=== PATIENT | male | born 1960 | race Caucasian/White ===

== ENCOUNTER 2023-07-27 02:19 | Observation (INO) | payer BC, OTHER ==
[2023-07-27] MEDS ORDERED: NITROGLYCERIN 0.4 MG/TAB SL ONE (02:47)
[2023-07-27] MEDS ORDERED: ASPIRIN 81 MG CHEWABLE TABLET ONE (02:47)
[2023-07-27 02:53] LABS: Absolute Lymphocytes (CBC) 1.3 K/uL (0.7-4.9); Lymphocytes % 15.8 % (15.3-44.8); MCV 89.6 fL (80-100); MPV 9.1 fL (7.6-11.3); Platelets 171 thou/uL (152-406); RBC Red Blood Cell Count 4.02 M/uL (4.33-5.43)
[2023-07-27] MEDS ORDERED: MORPHINE 4 MG/ML SYR ONE (03:07)
[2023-07-27] MEDS ORDERED: ONDANSETRON 4 MG/2 ML VIAL ONE (03:08)
[2023-07-27 03:12] LABS: ALT/SGPT 26 U/L (16-61); AST/SGOT 17 U/L (15-37); Albumin 3.5 g/dL (3.4-5.0); Alkaline Phosphatase 71 U/L (45-117); BUN Blood Urea Nitrogen 15 mg/dL (7-18); Bicarbonate 29 mEq/L (21-32); Bilirubin Direct < 0.1 mg/dL (0-0.2); Bilirubin Indirect, Calculated ND mg/dL (0.2-0.8); Bilirubin Total 0.3 mg/dL (0.2-1.0); Glomerular Filtration Rate 103 ml/min (=/>90); Glucose Level 312 mg/dL (74-106); Magnesium 1.7 mg/dL (1.6-2.4); NT PRO-BNP 62 pg/mL (<125); Sodium Level 134 mEq/L (136-145); Troponin High Sensitivity 6.4 pg/mL (<58.9)
[2023-07-27] MEDS ORDERED: FENTANYL CITR 100 MCG/2 ML ONE (05:52)
--- NOTE | 2023-07-27 06:26 | ER ---
Nurse's Notes [facility] Name: Codey Bishop Age: 62 yrs Sex: Male : 1960 Arrival Date: 07/27/2023 Time: 02:19 Bed 6 Private MD: Kyree Jin V Diagnosis: Chest pain, unspecified Presentation: 07/27 02:22 Chief complaint: Patient states: left side chest pain of 8 that radiates to left pf1 arm,onset 2030 last night,worse this AM with SOB. Patient stated had a Covid vaccination done yesterday. 02:22 Coronavirus screen: Vaccine status: Patient reports receiving the 2nd dose of the covid pf1 vaccine. 4 doses of covid vaccination Client denies travel out of the [place] in the last 14 days. At this time, the client does not indicate any symptoms associated with coronavirus-19. Ebola Screen: Patient negative for fever greater than or equal to 101.5 degrees Fahrenheit, and additional compatible Ebola Virus Disease symptoms. Initial Sepsis Screen: Does the patient meet any 2 criteria? No. Patient's initial sepsis screen is negative. Does the patient have a suspected source of infection? No. Patient's initial sepsis screen is negative. Risk Assessment: Do you want to hurt yourself or someone else? Patient reports no desire to harm self or others. 02:22 Method Of Arrival: Wheelchair pf1 02:22 Acuity: ANT 2 pf1 02:30 Onset of symptoms was July 26, 2023. jw7 Triage Assessment: 02:30 General: Appears in no apparent distress. uncomfortable, Behavior is calm, cooperative. jw7 02:30 Pain: Complains of pain in chest Pain radiates to left arm Pain currently is 8 out of jw7 10 on a pain scale. Quality of pain is described as pressure, radiating, sharp, tingling, Pain began 1 day ago. Is continuous. Cardiovascular: Reports chest pain, shortness of breath, Capillary refill < 3 seconds Clubbing of nail beds is absent JVD is absent Patient's skin is warm and dry. Historical: - Allergies: 02:39 PENICILLINS; pf1 - PMHx: 02:39 arthritis; Diabetes mellitus; Hypercholesterolemia; pf1 - PSHx: 02:39 left testicle surgery; nose surgery; pf1 - Immunization history:: Adult Immunizations up to date, Last tetanus immunization: < 10 years ago Flu vaccine is up to date. - Social history:: Smoking status: Patient denies any tobacco usage or history of. Patient/guardian denies using alcohol, street drugs. - Family history:: not pertinent. Screenin:30 [facility] ED Fall Risk Assessment (Adult) History of falling in the last 3 months, jw7 including since admission No falls in past 3 months (0 pts) Score/Fall Risk Level 0 - 2 = Low Risk. Abuse screen: Denies threats or abuse. Denies injuries from another. Nutritional screening: No deficits noted. Tuberculosis screening: No symptoms or risk factors identified. Assessment: 02:30 General: see triage assessment. jw7 02:50 Reassessment: Patient appears in no apparent distress at this time. Patient and/or jw7 family updated on plan of care and expected duration. Pain level reassessed. Patient is alert, oriented x 3, equal unlabored respirations, skin warm/dry/pink. pain not completely gone but better. 03:30 Reassessment: Patient appears in no apparent distress at this time. Patient and/or jw7 family updated on plan of care and expected duration. Pain level reassessed. Patient is alert, oriented x 3, equal unlabored respirations, skin warm/dry/pink. Patient states feeling better. 04:42 Reassessment: Patient appears in no apparent distress at this time. No changes from jw7 previously documented assessment. Patient and/or family updated on plan of care and expected duration. Pain level reassessed. Patient is alert, oriented x 3, equal unlabored respirations, skin warm/dry/pink. 05:40 Reassessment: Patient appears in no apparent distress at this time. Patient and/or jw7 family updated on plan of care and expected duration. Pain level reassessed. Patient is alert, oriented x 3, equal unlabored respirations, skin warm/dry/pink. c/o returning chest pain with radiation to left arm, provider notified. 05:40 Cardiovascular: Rhythm is sinus rhythm. jw7 06:42 Reassessment: Patient appears in no apparent distress at this time. Patient and/or jw7 family updated on plan of care and expected duration. Pain level reassessed. Patient is alert, oriented x 3, equal unlabored respirations, skin warm/dry/pink. Patient states feeling better. 09:13 Reassessment: attempted to call report to second floor. no answer at this time. kc6 09:25 Reassessment: attempted to call report to second floor. no answer at this time. charge kc6 nurse notified. will do bedside report to PEREZ Cohen. Vital Signs: 02:22 BP 160 / 65; Pulse 87; Resp 18; Temp 98.5; Pulse Ox 98% on R/A; Weight 83.91 kg; Height pf1 5 ft. 11 in. ; Pain 8/10; 02:30 BP 132 / 77 RA Sitting (auto/reg); Pulse 92 MON; Resp 14 S; Pulse Ox 95% on R/A; jw7 03:12 BP 107 / 66; Pulse 78; Resp 18; Pulse Ox 94% ; rv 03:37 BP 106 / 60; Pulse 76; Resp 20; Pulse Ox 95% ; rv 04:42 BP 111 / 58 LA Supine (auto/reg); Pulse 75 MON; Resp 16 S; Pulse Ox 98% on R/A; jw7 05:58 BP 131 / 69; Pulse 73; Resp 17; Pulse Ox 95% ; rv 06:41 BP 126 / 62; Pulse 81; Resp 18; Pulse Ox 96% ; rv 02:22 Body Mass Index 25.80 (83.91 kg, 180.34 cm) pf1 02:22 Pain Scale: Adult pf1 Paresh Coma Score: 05:58 Eye Response: spontaneous(4). Motor Response: obeys commands(6). Verbal Response: rv oriented(5). Total: 15. ED Course: 02:20 Patient arrived in ED. mr 02:21 Kyree Jin MD is Private Physician. mr 02:22 Emre Gonsales MD is Attending Physician. rt 02:30 Patient has correct armband on for positive identification. Bed in low position. Call jw7 light in reach. Arm band placed on. Client placed on continuous cardiac and pulse oximetry monitoring. NIBP monitoring applied. 02:33 Sandra Bai RN is Primary Nurse. jw7 02:39 Triage completed. pf1 02:45 Initial lab(s) drawn, by me, sent to lab. EKG done, by ED staff, reviewed by Emre Gonsales MD. Inserted saline lock: 20 gauge in right antecubital area, using aseptic technique. Blood collected. Patient maintains SpO2 saturation greater than 95% on room air. 02:50 XRAY Chest (1 view) In Process Unspecified. EDMS 04:23 CT Chest For PE Angio In Process Unspecified. EDMS 05:56 Troponin High Sensitivity Sent. jw7 06:25 Kyree Jin MD is Hospitalizing Provider. rt 07:00 Report received from Sandra Bai RN. kc6 07:21 No provider procedures requiring assistance completed. Patient admitted, IV remains in kc6 place. Administered Medications: 02:39 Drug: Nitroglycerin Sublingual 0.4 mg Route: Sublingual; jw7 02:44 Drug: Nitroglycerin Sublingual 0.4 mg Route: Sublingual; jw7 02:46 Drug: Aspirin PO Chewable Tablet 324 mg Route: PO; jw7 03:28 Follow up: Response: No adverse reaction jw7 02:49 Drug: Nitroglycerin Sublingual 0.4 mg Route: Sublingual; jw7 03:28 Follow up: Response: No adverse reaction; Marked relief of symptoms jw7 03:06 Drug: morphine IVP or IV 4 mg Route: IVP; Infused Over: 4 mins; Site: right antecubital;jw7 05:25 Follow up: Response: No adverse reaction; Marked relief of symptoms jw7 03:06 Drug: Ondansetron IVP 4 mg Route: IVP; Site: right antecubital; jw7 05:25 Follow up: Response: No adverse reaction jw7 05:56 Drug: fentaNYL (PF) IVP 50 mcg Route: IVP; Site: right antecubital; jw7 06:45 Follow up: Response: No adverse reaction; Marked relief of symptoms jw7 Medication: 07:21 VIS not applicable for this client. kc6 Outcome: 06:25 Decision to Hospitalize by Provider. rt 07:21 Admitted to ER Hold. Please see [facility] for further documentation. kc6 07:21 Condition: stable 07:21 Instructed on the need for admit. 09:39 Patient left the ED. kc6 Signatures: Dispatcher [employer] Florence ChavarriaJamshid RN RN rv Waits, Jodi, RN RN jw7 Campbell, Kaitlyn, RN RN kc6 Emre Gonsales MD MD rt Frances Mathew RN RN pf1 Corrections: (The following items were deleted from the chart) : 02:51 Arm band placed on jw7 jw7 :38 04:34 Patient has correct armband on for positive identification. Bed in low position. jw7 Call light in reach. jw7 : 04:34 Client placed on continuous cardiac and pulse oximetry monitoring. NIBP jw7 monitoring applied. jw7 : 04:34 Abuse screen: Denies threats or abuse. Denies injuries from another. jw7 7 :38 04:34 [facility] ED Fall Risk Assessment (Adult) History of falling in the last 3 months, jw7 including since admission No falls in past 3 months (0 pts) Score/Fall Risk Level 0 - 2 = Low Risk jw7 : 04:34 Nutritional screening: No deficits noted. jw7 7 : 04:34 Tuberculosis screening: No symptoms or risk factors identified. jw7 7 04:40 04:39 General: see triage assessment. jw7 7 04:42 03:30 Reassessment: Patient appears in no apparent distress at this time. Patient jw7 and/or family updated on plan of care and expected duration. Pain level reassessed. Patient is alert, oriented x 3, equal unlabored respirations, skin warm/dry/pink. jw7 06:42 05:40 Reassessment: Patient appears in no apparent distress at this time. Patient jw7 and/or family updated on plan of care and expected duration. Pain level reassessed. Patient is alert, oriented x 3, equal unlabored respirations, skin warm/dry/pink. c/o returning chest pain with radiation to left arm, provider notified. jw7
--- NOTE | 2023-07-27 06:26 | EDPHYS ---
Physician Documentation [facility] Name: Codey Bishop Age: 62 yrs Sex: Male : 1960 Arrival Date: 07/27/2023 Time: 02:19 Bed 6 Private MD: Kyree Jin V ED Physician Emre Gonsales HPI: 07/27 03:49 This 62 yrs old Male presents to ER via Wheelchair with complaints of Chest Pain. rt 03:49 Patient presents to the ED with a substernal chest pain rating to the left arm starting rt just about a. Is not exertional. He does have associated shortness of breath. He denies other acute complaints at this time. Pain is aching in nature, moderate severity, no other aggravating factors.. Historical: - Allergies: 02:39 PENICILLINS; pf1 - PMHx: 02:39 arthritis; Diabetes mellitus; Hypercholesterolemia; pf1 - PSHx: 02:39 left testicle surgery; nose surgery; pf1 - Immunization history:: Adult Immunizations up to date, Last tetanus immunization: < 10 years ago Flu vaccine is up to date. - Social history:: Smoking status: Patient denies any tobacco usage or history of. Patient/guardian denies using alcohol, street drugs. - Family history:: not pertinent. ROS: 03:49 Constitutional: Negative for fever, chills, and weight loss, Abdomen/GI: Negative for rt abdominal pain, nausea, vomiting, diarrhea, and constipation, MS/Extremity: Negative for injury and deformity, Skin: Negative for injury, rash, and discoloration, Neuro: Negative for headache, weakness, numbness, tingling, and seizure, Psych: Negative for depression, anxiety, suicide ideation, homicidal ideation, and hallucinations. 03:49 Cardiovascular: Positive for chest pain, Negative for edema. 03:49 Respiratory: Positive for shortness of breath, Negative for cough. Exam: 03:49 Constitutional: This is a well developed, well nourished patient who is awake, alert, rt and in no acute distress. Head/Face: Normocephalic, atraumatic. Neck: Trachea midline, no thyromegaly or masses palpated, and no cervical lymphadenopathy. Supple, full range of motion without nuchal rigidity, or vertebral point tenderness. No Meningismus. Chest/axilla: Normal chest wall appearance and motion. Nontender with no deformity. No lesions are appreciated. Cardiovascular: Regular rate and rhythm with a normal S1 and S2. No gallops, murmurs, or rubs. Normal PMI, no JVD. No pulse deficits. Respiratory: Lungs have equal breath sounds bilaterally, clear to auscultation and percussion. No rales, rhonchi or wheezes noted. No increased work of breathing, no retractions or nasal flaring. Abdomen/GI: Soft, non-tender, with normal bowel sounds. No distension or tympany. No guarding or rebound. No evidence of tenderness throughout. Skin: Warm, dry with normal turgor. Normal color with no rashes, no lesions, and no evidence of cellulitis. MS/ Extremity: Pulses equal, no cyanosis. Neurovascular intact. Full, normal range of motion. Neuro: Awake and alert, GCS 15, oriented to person, place, time, and situation. Cranial nerves II-XII grossly intact. Motor strength 5/5 in all extremities. Sensory grossly intact. Cerebellar exam normal. Normal gait. Psych: Awake, alert, with orientation to person, place and time. Behavior, mood, and affect are within normal limits. 03:49 ECG was reviewed by the Attending Physician. Vital Signs: 02:22 BP 160 / 65; Pulse 87; Resp 18; Temp 98.5; Pulse Ox 98% on R/A; Weight 83.91 kg; Height pf1 5 ft. 11 in. ; Pain 8/10; 02:30 BP 132 / 77 RA Sitting (auto/reg); Pulse 92 MON; Resp 14 S; Pulse Ox 95% on R/A; jw7 03:12 BP 107 / 66; Pulse 78; Resp 18; Pulse Ox 94% ; rv 03:37 BP 106 / 60; Pulse 76; Resp 20; Pulse Ox 95% ; rv 04:42 BP 111 / 58 LA Supine (auto/reg); Pulse 75 MON; Resp 16 S; Pulse Ox 98% on R/A; jw7 05:58 BP 131 / 69; Pulse 73; Resp 17; Pulse Ox 95% ; rv 06:41 BP 126 / 62; Pulse 81; Resp 18; Pulse Ox 96% ; rv 02:22 Body Mass Index 25.80 (83.91 kg, 180.34 cm) pf1 02:22 Pain Scale: Adult pf1 Brewster Coma Score: 05:58 Eye Response: spontaneous(4). Motor Response: obeys commands(6). Verbal Response: rv oriented(5). Total: 15. MDM: 02:22 Patient medically screened. rt 06:28 Differential diagnosis: abnormal EKG, acute myocardial infarction, coronary artery rt disease pneumonia, pneumothorax, pulmonary embolus. HEART Score: History: Highly Suspicious (2), ECG: Normal (0), Age: > 45 and < 65 years (1), Risk Factors: 1 or 2 risk factors (1), Troponin: < or = 1 x Normal Limit (0), Total Score = 4. 06:28 The patient was given aspirin in the Emergency Department. Data reviewed: vital signs, rt nurses notes. Consideration of Admission/Observation Patient was admitted/placed on observation. Management of patient was discussed with the following: Inspector Plug Seam: Discussed with cardiology on-call, recommends admission. I considered the following discharge prescriptions or medication management in the emergency department Medications were administered in the Emergency Department. See MAR. Independent interpretation of the following test(s) in the Emergency Department X-Ray: My interpretation is No consolidation seen on interpretation of the x-ray images. Care significantly affected by the following chronic conditions: Diabetes. Counseling: I had a detailed discussion with the patient and/or guardian regarding the historical points, exam findings, and any diagnostic results supporting the discharge/admit diagnosis, lab results, radiology results, the need for further work-up and treatment in the hospital. Response to treatment: the patient's symptoms have markedly improved after treatment. 07/27 02:28 Order name: Basic Metabolic Panel; Complete Time: 03:13 rt 07/27 02:28 Order name: CBC with Diff; Complete Time: 02:55 rt 07/27 02:28 Order name: D-Dimer; Complete Time: 03:13 rt 07/27 02:28 Order name: LFT's; Complete Time: 03:13 rt 07/27 02:28 Order name: Magnesium; Complete Time: 03:13 rt 07/27 02:28 Order name: NT PRO-BNP; Complete Time: 03:13 rt 07/27 02:28 Order name: Troponin HS; Complete Time: 03:13 rt 07/27 05:37 Order name: Troponin High Sensitivity; Complete Time: 06:13 rt 07/27 07:22 Order name: Glucose, Ancillary Testing EDMS 07/27 08:58 Order name: Troponin High Sensitivity EDMS 07/27 02:28 Order name: XRAY Chest (1 view) rt 07/27 03:41 Order name: CT Chest For PE Angio rt 07/27 02:28 Order name: EKG; Complete Time: 02:29 rt 07/27 06:45 Order name: Diet Heart Healthy; Complete Time: 06:45 jw7 07/27 06:47 Order name: CONS Physician Consult EDNY 07/27 02:28 Order name: Cardiac monitoring; Complete Time: 02:34 rt 07/27 02:28 Order name: EKG - Nurse/Tech; Complete Time: 02:34 rt 07/27 02:28 Order name: IV Saline Lock; Complete Time: 02:43 rt 07/27 02:28 Order name: Labs collected and sent; Complete Time: 02:43 rt 07/27 02:28 Order name: O2 Per Protocol; Complete Time: 02:34 rt 07/27 02:28 Order name: O2 Sat Monitoring; Complete Time: 02:34 rt EC:49 Rate is 87 beats/min. Rhythm is regular, Normal Sinus Rhythm with No ectopy. QRS Angela rt is Normal. CT interval is normal. QRS interval is normal. QT interval is normal. No Q waves. T waves are Normal. No ST changes noted. Interpreted by me. Administered Medications: 02:39 Drug: Nitroglycerin Sublingual 0.4 mg Route: Sublingual; jw7 02:44 Drug: Nitroglycerin Sublingual 0.4 mg Route: Sublingual; jw7 02:46 Drug: Aspirin PO Chewable Tablet 324 mg Route: PO; jw7 03:28 Follow up: Response: No adverse reaction jw7 02:49 Drug: Nitroglycerin Sublingual 0.4 mg Route: Sublingual; jw7 03:28 Follow up: Response: No adverse reaction; Marked relief of symptoms jw7 03:06 Drug: morphine IVP or IV 4 mg Route: IVP; Infused Over: 4 mins; Site: right antecubital;jw7 05:25 Follow up: Response: No adverse reaction; Marked relief of symptoms jw7 03:06 Drug: Ondansetron IVP 4 mg Route: IVP; Site: right antecubital; jw7 05:25 Follow up: Response: No adverse reaction jw7 05:56 Drug: fentaNYL (PF) IVP 50 mcg Route: IVP; Site: right antecubital; jw7 06:45 Follow up: Response: No adverse reaction; Marked relief of symptoms jw7 Disposition Summary: 07/27/23 06:25 Hospitalization Ordered Hospitalization Status: Observation rt Provider: Kyree Jin rt Location: Telemetry/MedSurg (observation) rt Condition: Stable rt Problem: new rt Symptoms: have improved rt Bed/Room Type: Standard rt Room Assignment: 228(07/27/23 08:58) bd Diagnosis - Chest pain, unspecified rt Forms: - Medication Reconciliation Form rt - SBAR form rt - Leadership Thank You Letter rt Signatures: Dispatcher [employer] EDTatyana Hansen Jodi, RN RN jw7 Emre Gonsales MD MD rt Frances Mathew RN RN pf1 Corrections: (The following items were deleted from the chart) 08:58 06:25 rt bd
[2023-07-27] MEDS: INSULIN -REGULAR HUMAN 50 UNIT/0.5 ML ML SQ SCH ×4 (07:51→21:00)
[2023-07-27 07:54] VITALS: BMI 25.4
[2023-07-27 09:54] VITALS: O2SAT 96
[2023-07-27] MEDS: COLCHICINE 0.6 MG TAB PO SCH ×2 (11:12→21:04)
[2023-07-27] MEDS ORDERED: ACETAMINOPHEN 500 MG TAB PO PRN (14:29)
--- NOTE | 2023-07-27 14:37 | P.SSS ---
Patient History Date of Service: 07/27/23 Reason for admission: chest pain History of Present Illness: Codey is a diabetic who had the new covid vaccine yesterday, followed by some work at home. He later started to have chest pain with radiation to l arm. Pain character is pleuritic, more on breathing deep and constant since begining. Allergies Penicillins Allergy (Verified 07/27/23 11:13) Itching/Hives/Rash Home medications list reviewed: Yes Home Medications: Insulin -Regular Human [Novolin -R] 8 - 10 unit SQ ACHS 07/27/23 Insulin Glargine,Hum.rec.anlog [Lantus] 25 unit SQ BEDTIME 07/27/23 Loratadine [Claritin] 10 mg PO BEDTIME 07/27/23 Pravastatin [Pravachol] 40 mg PO BEDTIME 07/27/23 Tumeric/Ging/Pinch/Oreg/Capryl [Candicidal Capsule] 1 each PO BEDTIME 07/27/23 - Past Medical/Surgical History Diabetic: Yes - Social History Smoking Status: Unknown if ever smoked Place of Residence: Home Review of Systems 10-point ROS is otherwise unremarkable Physical Examination - Vital Signs Temperature: 100.2 F Blood Pressure: 130/65 Pulse: 91 Respirations: 18 Pulse Ox (%): 96 - Physical Exam General: Alert, Mild distress HEENT: Atraumatic, PERRLA, Mucous membr. moist/pink, EOMI, Sclerae nonicteric Neck: Supple, 2+ carotid pulse no bruit, No LAD, Without JVD or thyroid abnormality Respiratory: Clear to auscultation bilaterally, Normal air movement Cardiovascular: Regular rate/rhythm, Normal S1 S2 Gastrointestinal: Normal bowel sounds, No tenderness Musculoskeletal: No tenderness Integumentary: No rashes Neurological: Normal gait, Normal speech, Normal strength at 5/5 x4 extr, Normal tone, Normal affect Lymphatics: No axilla or inguinal lymphadenopathy - Studies Laboratory Data (last 24 hrs) 07/27/23 07/27/23 02:42 02:42 WBC 8.40 Hgb 12.9 L Hct 36.0 L Plt Count 171 Sodium 134 L Potassium 4.0 BUN 15 Creatinine 0.70 Glucose 312 H Magnesium 1.7 Total Bilirubin 0.3 AST 17 ALT 26 Alkaline Phosphatase 71 - Diagnosis (Problem(s)) (1) Acute pericarditis Current Visit: Yes Status: Acute Plan: Codey has had pericarditis. Check CRP. Check echo. It is not unuusal for vaccines to give rise to se like this. Colchicine may help. start bid. May be able to go home tomorrow. Qualifiers: Pericarditis type: other type Qualified Code(s): I30.8 - Other forms of acute pericarditis (2) Diabetes mellitus, controlled Current Visit: Yes Status: Chronic - Disposition Disposition: ROUTINE DISCHARGE
[2023-07-27 17:58] LABS: Specific Gravity > 1.030 (1.005-1.030); Urine Bilirubin NEGATIVE (Negative); Urine Blood Negative (Negative); Urine Clarity Clear (Clear); Urine Color Light-Yellow (Yellow); Urine Glucose 4+ (Over) (Negative); Urine Protein NEGATIVE (Negative); Urine Urobilinogen Normal (Normal); Urine pH 5.5 (5.0-7.0)
--- NOTE | 2023-07-27 20:31 | RAD REPORT ---
EXAM DESCRIPTION: RAD - Chest Single View - 07/27/2023 2:48 am CLINICAL HISTORY: The patient is 62 years old and is Male; CHEST PAIN [facility] MAIN TECHNIQUE: Frontal view of the chest. COMPARISON: No relevant prior studies available. FINDINGS: LUNGS: Relatively expiratory lung volumes with no discrete focal consolidation. PLEURAL SPACE: Unremarkable. No pleural effusion. No pneumothorax. HEART: Unremarkable. No cardiomegaly. MEDIASTINUM: Prominence of the cardiomediastinal silhouette, likely exaggerated secondary to portab le technique, lordotic positioning, and patient body habitus. BONES/JOINTS: Unremarkable. VASCULATURE: Calcified atherosclerosis of the thoracic aorta. IMPRESSION: No acute findings in the chest. Electronically signed by: Gerry Max MD 07/27/2023 3:04 AM CDT Due to temporary technical issues with the PACS/Fluency reporting system, reports are being signed by the in house radiologists without review as a courtesy to insure prompt reporting. The interpreting radiologist is fully responsible for the content of the report.
--- NOTE | 2023-07-27 20:40 | RAD REPORT ---
EXAM DESCRIPTION: CT - Chest For Pe Angio - 07/27/2023 6:37 am CLINICAL HISTORY: 62 years Male CHEST PAIN COMPARISON: Chest x-ray 07/27/2023. TECHNIQUE: Intravenous low osmolar contrast. Coronal and sagittal reformations including 3D maximu m intensity projections. This exam was performed according to our departmental dose-optimization program, which includes autom ated exposure control, adjustment of the mA and/or kV according to patient size and/or use of iterati ve reconstruction technique. FINDINGS: PULMONARY ARTERIAL SYSTEM: Contrast bolus is adequate. No CT evidence for pulmonary embo lism. CARDIAC: Normal. AORTA/VASCULAR: No aneurysm. LYMPH NODES/MEDIASTINUM: No thoracic adenopathy. Calcified hilar and mediastinal nodes. CENTRAL AIRWAYS: Central airways are patent. LUNGS: No focal consolidation. Bilateral dependent reticular opacities, likely atelectasis. PLEURA: Normal. ESOPHAGUS: Collapsed and not well assessed by CT, without obvious abnormality. THYROID: Negative, where seen. CHEST WALL: Normal. UPPER ABDOMEN: No acute findings. Numerous calcified splenic granulomas. THORACIC SKELETAL: No acute finding. ADDITIONAL CHEST FINDINGS: None. IMPRESSION: 1. No evidence of acute pulmonary embolus. 2. No focal consolidation. Bilateral dependent reticular opacities, likely atelectasis. Electronically signed by: Sharon Garcia MD 07/27/2023 4:45 AM CDT Due to temporary technical issues with the PACS/Fluency reporting system, reports are being signed by the in house radiologists without review as a courtesy to insure prompt reporting. The interpreting radiologist is fully responsible for the content of the report.
[2023-07-27] MEDS ORDERED: LORATADINE 10 MG TAB PO SCH (21:00)
[2023-07-27] MEDS ORDERED: INSULIN GLARGINE 100 UNIT/ML SQ SCH (21:00)
[2023-07-27] MEDS ORDERED: LORATADINE 10 MG PO SCH (21:00)
[2023-07-27] MEDS ORDERED: ATORVASTATIN 10 MG TAB PO SCH (21:00)
[2023-07-27] MEDS ORDERED: HOME MED 1 EA UNK (Pravastatin [Pravachol*] 40 MG/TAB Tab) PO SCH (21:00)
[2023-07-28] MEDS: INSULIN -REGULAR HUMAN 50 UNIT/0.5 ML ML SQ SCH (07:30)
[2023-07-28] MEDS: COLCHICINE 0.6 MG TAB PO SCH (08:33)
[2023-07-28 09:12] VITALS: BP 114/61; TEMP 99
--- NOTE | 2023-07-28 16:35 | CON ---
Date of Consultation: 07/27/2023 Reason For Consultation: Chest pain. History Of Present Illness: A 62-year-old male with history of diabetes, hypertension, dyslipidemia. After receiving COVID vaccine yesterday, started having pleuritic type of chest pain. No radiation with deep inspiration and no cough. No fever. No dysuria, polyuria, or urinary urgency. No other complaints. Past Medical History: As outlined above in the HPI. Medications: Refer to reconciliation sheet for detailed list. Allergies: HE IS ALLERGIC TO PENICILLIN. Family History: No premature coronary artery disease or cancer. Social History: Does not smoke or drink. Does not use any drugs. Review of Systems: All systems reviewed and they were negative except what mentioned in HPI. Physical Examination: Vital Signs: Reviewed. Head and Neck: Pupils are equal, reactive to light. Intact eye movements. No JVD. No cervical lym phadenopathy. Neck: Supple. Thyroid is not enlarged. Lungs: Clear to auscultation bilaterally. No rhonchi, wheezing, or crackles. No accessory muscle u se. Heart: Regular rate and rhythm. No extra sounds. Abdomen: Soft, nontender. Bowel sounds positive. No organomegaly. No masses or hernia. No rigidi ty or rebound. Extremities: No edema, clubbing, or cyanosis. Intact pulses. Skin: No rash. Neurologic: Alert, awake, oriented x3. No acute focal deficits appreciated. Lymph Nodes: No cervical or axillary lymphadenopathy. Investigations: Cardiac enzymes are negative. Assessment And Recommendations: 1.Chest pain, pleuritic in nature. He was given colchicine and responded very well. I believe this is a mild case of acute pericarditis. Plan to continue colchicine for 2 weeks at 0.6 mg twice a day and have him follow up in 2 weeks in the office and will obtain echocardiogram and stress test. 2.Hypertension, better controlled. Continue current management. SR/MODL Voice ID: [id number] Report ID: [id number]
--- NOTE | 2023-07-29 19:10 | EKG ---
Test Date: 2023-07-27 Test Time: 02:26:38 Environmental Control Administrator: MAIRBEL MEASUREMENT RESULTS: Intervals: Rate: 87 UT: 134 QRSD: 84 QT: 368 QTc: 442 [place]: P: 49 UT: 134 QRS: 55 T: 46 INTERPRETIVE STATEMENTS: Normal sinus rhythm Normal ECG No previous ECG available for comparison Electronically Signed On 07-29-23 19:05:54 CDT by Boyd Choi
== END 2023-07-28 11:45 | disposition home or self-care (01) ==
LOC: ER 02:19 → ERHOLD 06:44 → 2ND 09:25
PROVIDERS: ADMIT Internal Medicine; ATTEND Internal Medicine
DX: I30.8 Other forms of acute pericarditis (principal); R07.9 Chest pain, unspecified; E11.9 Type 2 diabetes mellitus without complications; E78.5 Hyperlipidemia, unspecified; I10 Essential (primary) hypertension; Z88.0 Allergy status to penicillin
CPT/HCPCS: 93005; 85025; 80048; 36415 ×2; 83735; 80061; 82947 ×5; 85379; 80076; 81003; 84484 ×5; 83880; 86140; 71275; 71045; 96375; 96374; 99285; Q9967; J3010; J2405; G0378 ×4